=== PATIENT | male | born 1995 | race Caucasian/White ===

== ENCOUNTER 2017-03-25 09:26 | Emergency (ER) | payer BC ==
--- NOTE | 2017-03-25 10:51 | UC ---
Respiratory Complaint HPI - HPI Summary HPI Summary: patient has had fever, body aches, chills, skin hurts, chest congestion, feels like he cant take a deep breath, lasted for the past 24 hours - History of Current Complaint Stated Complaint: RESPIRATORY Time Seen by Provider: 03/25/17 10:39 Hx Obtained From: Patient Onset/Duration: Sudden Onset, Lasting Days Timing: Constant Severity Initially: Mild Severity Currently: Moderate Character: Cough: Productive Aggravating Factors: Exertion, Deep Breaths Alleviating Factors: Nothing Associated Signs And Symptoms: Positive: Dyspnea, Wheezing, URI, Nasal Congestion - Allergies/Home Medications Allergies/Adverse Reactions: Allergies Allergy/AdvReac Type Severity Reaction Status Date / Time No Known Allergies Allergy Verified 03/25/17 10:55 Home Medications: Home Medications Ibuprofen [Advil] 200 mg PO PRN 03/25/17 [History] PMH/Surg Hx/FS Hx/Imm Hx Previously Healthy: Yes - Family History Known Family History: Negative: Cardiac Disease, Hypertension Review of Systems Constitutional: Fever, Chills, Fatigue Skin: Negative Eyes: Eye Redness ENT: Sore Throat Respiratory: Shortness Of Breath, Cough Cardiovascular: Negative Gastrointestinal: Negative Genitourinary: Negative Motor: Negative Neurovascular: Negative Musculoskeletal: Arthralgia, Myalgia Neurological: Headache Psychological: Negative Is Patient Immunocompromised?: No All Other Systems Reviewed And Are Negative: Yes Physical Exam Triage Information Reviewed: Yes Appearance: Well-Nourished, Pain Distress Vital Signs Reviewed: Yes Eye Exam: Normal ENT Exam: Normal ENT: Positive: Pharyngeal erythema, TM dull, TM red Dental Exam: Normal Neck exam: Normal Neck: Positive: Supple, Nontender, No Lymphadenopathy Respiratory Exam: Normal Respiratory: Positive: No respiratory distress, Decreased breath sounds, Wheezing, Inspiration Cardiovascular Exam: Normal Cardiovascular: Positive: No Murmur, Pulses Normal Abdominal Exam: Normal Abdomen Description: Positive: Nontender, No Organomegaly, Soft Bowel Sounds: Positive: Present Musculoskeletal Exam: Normal Musculoskeletal: Positive: Strength Intact, ROM Intact, No Edema Neurological Exam: Normal Neurological: Positive: Alert, Muscle Tone Normal Psychological Exam: Normal Skin: Positive: Other - aches, hurts to touch Respiratory Course/Dx - Course Course Of Treatment: hx obtained,exam performed ,meds reviewed, rapid flu and strep obtained. Pos INfluenza A, started tamiflu - Differential Dx/Diagnosis Differential Diagnosis/HQI/PQRI: Asthma, Bronchitis, Laryngitis, Lower Resp Infection, Sinusitis Provider Diagnoses: influenza A. fever Discharge - Discharge Plan Condition: Stable Disposition: HOME Prescriptions: Oseltamivir CAP* [Tamiflu CAP*] 75 mg PO BID #10 cap Patient Education Materials: Influenza (ED) Forms: *School Release Referrals: Non Staff,Doctor [Primary Care Provider] - Additional Instructions: 1. Please self isolate yourself for the next few days. 2. Take the medication as prescribed. do not drink alcohol 3. Increase fluid intake and get plenty of rest. 4. Report to ER for any increased respiratory distress or sign of dehydration.
[2017-03-25 10:55] VITALS: BP 118/64
== END 2017-03-25 11:46 | disposition home or self-care (01) ==
LOC: UCCORT 09:26
DX: J11.1 Influenza due to unidentified influenza virus with other respiratory manifestations (principal); R50.9 Fever, unspecified
CPT/HCPCS: 87502; 87651; 99202; G0463

== ENCOUNTER 2017-04-14 15:06 | Emergency (ER) | payer BC ==
[2017-04-14 18:03] VITALS: BP 114/69
--- NOTE | 2017-04-14 18:10 | UC ---
Respiratory Complaint HPI - HPI Summary HPI Summary: 21 y/o Male presents to the urgent care c/o sore throat and neck discomfort and mild cough since this morning. Pt reports he was here on 03/25/2017 and Dx w/ Influenza A and Rx Tamiflu. He finished medications and symptoms resolved. he wants to make sure he is nto getting it again. Pt denies fever, PALMA, body aches, nasal congestion or discharge, SOB, chest pain, abdominal pain, N/V/D. - History of Current Complaint Chief Complaint: UCGeneralIllness Stated Complaint: FLU SYMPTOMS Time Seen by Provider: 04/14/17 18:05 Hx Obtained From: Patient Onset/Duration: Gradual Onset, Lasting Days - 1 day, Still Present, Worse Since - today Timing: Constant Severity Initially: Mild Severity Currently: Mild Pain Intensity: 2 Pain Scale Used: 0-10 Numeric Character: Cough: Nonproductive Aggravating Factors: Nothing Alleviating Factors: OTC Meds Associated Signs And Symptoms: Positive: Nasal Congestion. Negative: Fever, Chills - Risk Factors Pulmonary Embolism Risk Factors: Negative Cardiac Risk Factors: Negative Pseudomonas Risk Factors: Negative Tuberculosis Risk Factors: Negative - Allergies/Home Medications Allergies/Adverse Reactions: Allergies Allergy/AdvReac Type Severity Reaction Status Date / Time No Known Allergies Allergy Verified 04/14/17 18:03 PMH/Surg Hx/FS Hx/Imm Hx Previously Healthy: Yes - Pt denies PMHX - Surgical History Surgical History: Yes Surgery Procedure, Year, and Place: tonsilectomy - Family History Known Family History: Positive: None - Pt denies FMHX Negative: Cardiac Disease, Hypertension - Social History Occupation: Student Lives: Dormitory/Roommates Alcohol Use: Weekly Alcohol Amount: 2-3 times a week Substance Use Type: Marijuana Substance Use Comment - Amount & Last Used: occ use Smoking Status (MU): Never Smoked Tobacco - Immunization History Vaccination Up to Date: Yes Review of Systems Constitutional: Fever - subjective at home this morning Skin: Negative Eyes: Negative ENT: Sore Throat, Nasal Discharge Respiratory: Cough Cardiovascular: Negative Gastrointestinal: Negative Genitourinary: Negative Motor: Negative Neurovascular: Negative Musculoskeletal: Negative Neurological: Negative Psychological: Negative Is Patient Immunocompromised?: No All Other Systems Reviewed And Are Negative: Yes Physical Exam Triage Information Reviewed: Yes Vital Signs: Initial Vital Signs Temp 98.4 F 04/14/17 17:56 Pulse 69 02/17/18 17:56 Resp 15 04/14/17 17:56 BP 114/69 04/14/17 17:56 Pulse Ox 100 04/14/17 17:56 - Additional Comments VITAL SIGNS: Reviewed. GENERAL: Patient is a well developed and nourished male who is sitting comfortable in the examining table. Patient is not in any acute respiratory distress. HEAD AND FACE: No signs of trauma. No ecchymosis, hematomas or skull depressions. No sinus tenderness. EYES: PERRLA, EOMI x 2, No injected conjunctiva, no nystagmus. No photophobia. EARS: Hearing grossly intact. Ear canals and tympanic membranes are within normal limits. MOUTH: Positive pharynx with mild erythema,no exudates, no palatal petechiae. mild B/L tonsillar enlargement with no exudate. Uvula in midline. NECK: Supple, trachea is midline, Positive anterior cervical lymphadenopathy, no JVD, no carotid bruit, no c-spine tenderness, neck with full ROM. No meningeal signs, no Kernig's or brudzinskis signs. CHEST: Symmetric, no tenderness at palpation LUNGS: Clear to auscultation bilaterally. No wheezing or crackles. CVS: Regular rate and rhythm, S1 and S2 present, no murmurs or gallops appreciated. ABDOMEN: Soft, non-tender. No signs of distention. No rebound no guarding, and no masses palpated. Bowel sounds are normal. EXTREMITIES: FROM in all major joints, no edema, no cyanosis or clubbing. NEURO: Alert and oriented x 3. No acute neurological deficits. Speech is normal and follows commands. SKIN: Dry and warm UC Diagnostic Evaluation - Laboratory O2 Sat by Pulse Oximetry: 100 Respiratory Course/Dx - Course Course Of Treatment: 21 y/o Male presents to the urgent care c/o sore throat and neck discomfort and mild cough since this morning. Pt reports he was here on 03/25/2017 and Dx w/ Influenza A and Rx Tamiflu. He finished medications and symptoms resolved. he wants to make sure he is nto getting it again. Pt denies fever, PALMA, body aches, nasal congestion or discharge, SOB, chest pain, abdominal pain, N/V/D.Hx obtained. Pt w/ a pharyngitis on examination. Most likely Viral pharyngitis. Pt Rx ibuprofen PO to alleviates symptoms of pain and swelling. Advised on hand washing to avoid spreading. Pt advised to rest, eat well and avoid strenuous exercise. If symptoms do not improve or worsen advised to return to the urgent care or f/u with her PCP for further evaluation and treatment. Pt understood and agreed - Differential Dx/Diagnosis Differential Diagnosis/HQI/PQRI: Bronchitis, Influenza, Laryngitis, Sinusitis, Other - pharyngitis Provider Diagnoses: 1- Viral Pharyngitis Discharge - Discharge Plan Condition: Stable Disposition: HOME Prescriptions: Ibuprofen TAB* [Motrin TAB* 800 MG] 800 mg PO Q6H PRN #20 tab PRN Reason: Sore Throat Patient Education Materials: Pharyngitis (ED) Referrals: [facility] [place] [facility] [Outside] - If Needed Additional Instructions: 1-Please take ibuprofen PO q6-8hrs prn as instructed after meals to alleviate pain and swelling. Increase fluid intake, eat well, rest and avoid strenuous exercise 2-If symptoms do not improve or worsen please return to the urgent care or f/u with your PCP for further evaluation and treatment.
== END 2017-04-14 18:30 | disposition home or self-care (01) ==
LOC: UCCORT 15:06
DX: J02.8 Acute pharyngitis due to other specified organisms (principal)
CPT/HCPCS: 99212; G0463

== ENCOUNTER 2018-01-29 13:41 | Emergency (ER) | payer BC ==
[2018-01-29 14:26] VITALS: BP 117/77
--- NOTE | 2018-01-29 14:42 | UC ---
Throat Pain/Nasal Rush HPI - HPI Summary HPI Summary: 22 y/o male presents to the urgent care c/o URI symptoms for the past week w/ nasal congestion and yellowish nasal discharge and a dry cough. Pt states last night he developed sore throat, PALMA and fever. Pain w/ swallowing is 8/10. He has not taking anything to alleviate symptoms. Pt denies fever, SOB, chest pain , abdominal pain, N/V/D, rash or neck pain. Pt is UTD w/ all vaccines for his age, - History of Current Complaint Chief Complaint: UCRespiratory Stated Complaint: SORE THROAT, FEVER Time Seen by Provider: 01/29/18 14:41 Hx Obtained From: Patient Onset/Duration: Gradual Onset, Lasting Weeks - 1 week or URI symptoms, Still Present, Worse Since - yesterday w/ sore thraot and fever Severity: Moderate Pain Intensity: 8 Pain Scale Used: 0-10 Numeric Cough: Nonproductive Associated Signs & Symptoms: Positive: Dysphagia, Nasal Discharge - yellowish, Fever - Epiglottits Risk Factors Epiglottis Risk Factors: Negative - Allergies/Home Medications Allergies/Adverse Reactions: Allergies Allergy/AdvReac Type Severity Reaction Status Date / Time No Known Allergies Allergy Verified 01/29/18 14:25 Home Medications: Home Medications Dextromethorphn/Acetaminoph/Cp [Vicks Nyquil Cold & Flu Liquid] 1 liq PO QPM PRN 01/29/18 [History Confirmed 01/29/18] Phenylephrine/Dm/Acetaminop/GG [Vicks Dayquil Severe Cold-Flu] 236 ml PO DAILY PRN 01/29/18 [History Confirmed 01/29/18] PMH/Surg Hx/FS Hx/Imm Hx Previously Healthy: Yes - Pt denies PMHX - Surgical History Surgical History: Yes Surgery Procedure, Year, and Place: tonsilectomy - Family History Known Family History: Positive: Cardiac Disease Negative: Hypertension - Social History Occupation: Student Lives: With Family Alcohol Use: Weekly Alcohol Amount: 36 Substance Use Type: Marijuana Substance Use Comment - Amount & Last Used: 3-4 mos. Smoking Status (MU): Never Smoked Tobacco - Immunization History Vaccination Up to Date: Yes Review of Systems All Other Systems Reviewed And Are Negative: Yes Constitutional: Positive: Fever Skin: Positive: Negative Eyes: Positive: Negative ENT: Positive: Sore Throat, Nasal Discharge - yellowish Respiratory: Positive: Cough - dry Cardiovascular: Positive: Negative Gastrointestinal: Positive: Negative Genitourinary: Positive: Negative Motor: Positive: Negative Neurovascular: Positive: Negative Musculoskeletal: Positive: Negative Neurological: Positive: Headache Psychological: Positive: Negative Is Patient Immunocompromised?: No Physical Exam - Summary Physical Exam Summary: VITAL SIGNS: Reviewed. GENERAL: Patient is a well developed and nourished male who is sitting comfortable in the examining table. Patient is not in any acute respiratory distress. HEAD AND FACE: No signs of trauma. No ecchymosis, hematomas or skull depressions. No sinus tenderness. EYES: PERRLA, EOMI x 2, No injected conjunctiva, no nystagmus. No photophobia. EARS: Hearing grossly intact. Ear canals and tympanic membranes are within normal limits. MOUTH: Positive pharynx with erythema, exudates, palatal petechiae. B/L tonsillar enlargement with exudate. Uvula in midline. NECK: Supple, trachea is midline, Positive anterior cervical lymphadenopathy, no JVD, no carotid bruit, no c-spine tenderness, neck with full ROM. No meningeal signs, no Kernig's or brudzinskis signs. CHEST: Symmetric, no tenderness at palpation LUNGS: Clear to auscultation bilaterally. No wheezing or crackles. CVS: Regular rate and rhythm, S1 and S2 present, no murmurs or gallops appreciated. ABDOMEN: Soft, non-tender. No signs of distention. No rebound no guarding, and no masses palpated. Bowel sounds are normal. EXTREMITIES: FROM in all major joints, no edema, no cyanosis or clubbing. NEURO: Alert and oriented x 3. No acute neurological deficits. Speech is normal and follows commands. SKIN: Dry and warm Triage Information Reviewed: Yes Vital Signs: Initial Vital Signs Temp 99.1 F 01/29/18 14:19 Pulse 122 01/29/18 14:19 Resp 18 01/29/18 14:19 BP 117/77 01/29/18 14:19 Pulse Ox 100 01/29/18 14:19 Throat Pain/Nasal Course/Dx - Course Course Of Treatment: 22 y/o male presents to the urgent care c/o URI symptoms for the past week w/ nasal congestion and yellowish nasal discharge and a dry cough. Pt states last night he developed sore throat, PALMA and fever. Pain w/ swallowing is 8/10. He has not taking anything to alleviate symptoms. Pt denies fever, SOB, chest pain, abdominal pain, N/V/D, rash or neck pain. Pt is UTD w/ all vaccines for his age. Hx obtained. Pt w/ pharyngitis on examination. Rapid strep ordered: result: positive. Strep pharyngitis. Pt given Ibuprofen 800mg PO at the clinic since HR is elevated and Temp:99.1. Pt observed for 20 min and temp. decrease to 98 and HR=84bpm. PT Rx Amoxicillin PO and Ibuprofen PO for pain and swelling. PT Advised on hand washing to avoid spreading. Also advised to rest, eat well and avoid strenuous exercise. If symptoms do not improve or worsen advised to return to the urgent care or f/u with her PCP for further evaluation and treatment. D/C instructions explained. PT understood and agreed w/ plan of care. - Differential Dx/Diagnosis Differential Diagnosis/HQI/PQRI: Laryngitis, Mononucleosis, Pharyngitis, Tonsillitis, URI Provider Diagnosis: Strep pharyngitis Discharge - Sign-Out/Discharge Documenting (check all that apply): Patient Departure - D/c home All imaging exams completed and their final reports reviewed: No Studies - Discharge Plan Condition: Stable Disposition: HOME Prescriptions: Amoxicillin PO (*) [Amoxicillin 500 MG CAP*] 500 mg PO Q12H #20 cap Ibuprofen TAB* [Motrin TAB* 800 MG] 800 mg PO Q6H PRN #30 tab PRN Reason: Sore Throat Patient Education Materials: Strep Throat (ED) Forms: *School Release Referrals: [facility] [place] [facility] [Outside] - 3 Days Additional Instructions: 1- Please take the full course of the antibiotic to avoid resistance. 2-Please take ibuprofen PO q6-8hrs prn as instructed after meals to alleviate pain and swelling. Increase fluid intake, eat well, rest and avoid strenuous exercise 3-If symptoms do not improve or worsen please return to the urgent care or f/u with your PCP for further evaluation and treatment. - Billing Disposition and Condition Condition: STABLE Disposition: Home - Attestation Statements Provider Attestation: I was available for consult. This patient was seen by the VOLODYM[facility]. The patient was not presented to, seen by, or examined by me. -Lilia
[2018-01-29] MEDS ORDERED: Ibuprofen TAB* 400 MG PO ONE (14:50)
== END 2018-01-29 15:19 | disposition home or self-care (01) ==
LOC: UCCORT 13:41
DX: J02.0 Streptococcal pharyngitis (principal); B95.0 Streptococcus, group A, as the cause of diseases classified elsewhere
CPT/HCPCS: 87651; 99212; A9270-GY; G0463